=== PATIENT | male | born 1945 | race Caucasian/White ===

== ENCOUNTER 2020-03-21 13:14 | Inpatient (IN) | payer MEDICARE, MEDICAID ==
[~2020-03-21] VITALS: Ht 167.6 cm; Wt 88.6 kg
[2020-03-21] MEDS ORDERED: METHYLPREDNISOLONE SOD SUCC 125 MG/2 ML VIAL IV STA (13:54)
[2020-03-21] MEDS ORDERED: MAGNESIUM 2 G PREMIX 50 ML IV STA (13:54)
[2020-03-21] MEDS ORDERED: ALBUTEROL 6.7GM HFA INHALER ORI ONE (14:00)
[2020-03-21] MEDS ORDERED: SODIUM CHLORIDE 0.9% 500 ML IV ONE (14:00)
[2020-03-21] MEDS ORDERED: LEVOFLOXACIN 750MG PREMIX 150 ML IV ONE (14:00)
[2020-03-21 14:37] LABS: HEMATOCRIT. 41.7 % (42.0-52.0); HEMOGLOBIN. 14.4 g/dL (14.0-18.0); MEAN CORPUSCULAR HEMOGLOBIN 31.4 pg (28.0-32.0); MEAN PLATELET VOLUME 8.2 fl (7.4-10.4); PLATELET 131 x1000/uL (130-400); RED BLOOD CELL COUNT 4.58 mill/uL (4.7-6.1); RED CELL DISTRIBUTION WIDTH 14.3 % (11.6-14.6)
[2020-03-21 14:41] LABS: INR 1.2; PROTHROMBIN TIME 12.4 sec (9.6-11.0)
[2020-03-21 14:46] LABS: CHLORIDE 102 mEq/L (98-107)
[2020-03-21 14:53] LABS: PLATELET ESTIMATE NORMAL
[2020-03-21] MEDS ORDERED: ACETAMINOPHEN 325MG TABLET PO ONE (15:00)
[2020-03-21] MEDS ORDERED: FUROSEMIDE 40MG/4ML VIAL IVP ONE (15:00)
[2020-03-22] MEDS ORDERED: BENZONATATE 100MG CAPSULE PO PRN (08:45)
[2020-03-22] MEDS ORDERED: MAGNESIUM/ALUMINUM HYDROXIDE/SIMETHICONE 30ML UDC PO PRN (08:45)
[2020-03-22] MEDS ORDERED: DIPHENHYDRAMINE 50MG/ML VIAL IV PRN (08:45)
[2020-03-22] MEDS ORDERED: HYDROCODONE/ACETAMINOPHEN 5/325MG TABLET PO PRN (08:45)
[2020-03-22] MEDS ORDERED: DOCUSATE SODIUM 100MG CAPSULE PO PRN (08:45)
[2020-03-22] MEDS ORDERED: ONDANSETRON HCL 4MG/2ML INJ IV PRN (08:45)
[2020-03-22] MEDS ORDERED: CLONIDINE 0.1MG TABLET PO PRN (08:45)
[2020-03-22] MEDS ORDERED: ENOXAPARIN 40MG/0.4ML SYR SUBCUT SCH (09:00)
[2020-03-22] MEDS: FUROSEMIDE 40MG/4ML VIAL IVP SCH (09:41)
[2020-03-22] MEDS: OMEPRAZOLE 20MG CAPSULE EXTENDED RELEASE PO SCH (09:41)
[2020-03-22] MEDS: ASPIRIN 81MG TABLET PO SCH (10:15)
[2020-03-22] MEDS ORDERED: ENOXAPARIN 30MG/0.3ML SYR SUBCUT NR (10:45)
[2020-03-22] MEDS ORDERED: FUROSEMIDE 40MG/4ML VIAL IVP SCH (11:00)
[2020-03-22] MEDS ORDERED: CEFTRIAXONE 1 G PREMIX 50 ML IV SCH (11:15)
[2020-03-22] MEDS: DEXAMETHASONE 4MG/ML 1ML VIAL IV SCH (11:15)
[2020-03-22 12:32] LABS: HEMATOCRIT 42.4 % (42.0-52.0); HEMOGLOBIN 14.5 g/dL (14.0-18.0); MEAN CORPUSCULAR HEMOGLOBIN 31.2 pg (28.0-32.0); MEAN CORPUSCULAR VOLUME 91.2 fL (80.0-94.0); PLATELET 149 x1000/uL (130-400); RED BLOOD CELL COUNT 4.65 mill/uL (4.7-6.1); RED CELL DISTRIBUTION WIDTH 14.3 % (11.6-14.6)
[2020-03-22 12:43] LABS: CHLORIDE 100 mEq/L (98-107)
[2020-03-22] MEDS: CEFTRIAXONE 1,000 MG in DEXTROSE 5% WATER 50 ML IV SCH (13:45)
[2020-03-22] MEDS: DILTIAZEM HCL 120MG CAPSULE CD 24HR PO SCH (13:45)
[2020-03-22] MEDS: AZITHROMYCIN 500 MG in DEXT 5% WATER 250 ML IV SCH (13:45)
[2020-03-22] MEDS ORDERED: DEXTROSE 50% WATER 50ML SYRINGE IV PRN (14:15)
[2020-03-22] MEDS: BLOOD SUGAR DIAGNOSTIC STRIP TEST SCH ×2 (16:30→20:00)
[2020-03-22] MEDS: INSULIN LISPRO 100 UNITS/ML SUBCUT SCH ×2 (17:00→21:00)
[2020-03-22 21:54] LABS: HEMATOCRIT. 42.7 % (42.0-52.0); HEMOGLOBIN. 14.6 g/dL (14.0-18.0); MEAN CORPUSCULAR HEMOGLOBIN 31.4 pg (28.0-32.0); MEAN CORPUSCULAR VOLUME 91.8 fL (80.0-94.0); MEAN PLATELET VOLUME 8.4 fl (7.4-10.4); PLATELET 164 x1000/uL (130-400); RED BLOOD CELL COUNT 4.65 mill/uL (4.7-6.1); RED CELL DISTRIBUTION WIDTH 14.6 % (11.6-14.6)
[2020-03-22 21:57] LABS: INR 1.2; PROTHROMBIN TIME 12.8 sec (9.6-11.0)
[2020-03-22] MEDS ORDERED: IOHEXOL-350 100 ML BOTTLE ONE (21:59)
[2020-03-22 22:06] LABS: CHLORIDE 100 mEq/L (98-107)
[2020-03-22 22:06] LABS: BG BASE EXCESS -1.3 mmol/L (-2.0-2.0); BG CARBOXYHEMOGLOBIN 0.1 % (0.5-1.5); BG DEOXYHEMOGLOBIN 1.9 % (0.0-5.0); BG FRACTION INSPIRED OXYGEN 40; BG HCO3 ACT 27.8 mmol/L (22.0-26.0); BG METHEMOGLOBIN 0.4 % (0.0-1.5); BG OXYGEN SATURATION 98.1 % (92.0-98.5); BG OXYHEMOGLOBIN 97.6 % (94.0-97.0); BG PCO2 65.8 mmHg (35.0-45.0); BG PH 7.243 (7.350-7.450); BG PO2 134.3 mmHg (75.0-100.0); BG SAMPLE SITE RIGHT RADIAL; BG VENT MODE NASAL CANNULA
[2020-03-22 22:26] LABS: PLATELET ESTIMATE NORMAL
[2020-03-22] MEDS ORDERED: HALOPERIDOL LACTATE 5MG/ML VIAL IM NR (22:30)
[2020-03-23] MEDS: ENOXAPARIN 80MG/0.8ML SYR SUBCUT SCH ×3 (00:06→21:21)
[2020-03-23] MEDS: CARVEDILOL 12.5MG TABLET PO SCH ×4 (00:07→22:53)
[2020-03-23] MEDS: ATORVASTATIN CALCIUM 40MG TABLET PO SCH ×2 (00:07→21:20)
[2020-03-23] MEDS ORDERED: ALBUTEROL (0.083%) 2.5MG/3ML NEB HHN ONE (01:30)
[2020-03-23] MEDS ORDERED: SODIUM CHLORIDE 0.9% 500 ML IV ONE (01:30)
[2020-03-23 05:01] LABS: CHLORIDE 102 mEq/L (98-107)
[2020-03-23 05:02] LABS: HEMATOCRIT. 42.8 % (42.0-52.0); HEMOGLOBIN. 14.6 g/dL (14.0-18.0); MEAN CORPUSCULAR HEMOGLOBIN 31.2 pg (28.0-32.0); MEAN CORPUSCULAR VOLUME 91.2 fL (80.0-94.0); MEAN PLATELET VOLUME 8.2 fl (7.4-10.4); PLATELET 171 x1000/uL (130-400); RED BLOOD CELL COUNT 4.69 mill/uL (4.7-6.1); RED CELL DISTRIBUTION WIDTH 14.4 % (11.6-14.6)
[2020-03-23 05:19] LABS: PHOSPHORUS 4.3 mg/dL (2.5-4.9)
[2020-03-23 05:20] LABS: LDL CHOLESTEROL 63 mg/dL (5-100)
[2020-03-23 05:23] LABS: T4 FREE 1.38 ng/dL (0.76-1.46)
[2020-03-23 05:24] LABS: HDL CHOLESTEROL 38 mg/dL (40-59)
[2020-03-23] MEDS ORDERED: GLIM2TAB30 PO (05:58)
[2020-03-23] MEDS ORDERED: POTA20TA82 PO (05:58)
[2020-03-23] MEDS ORDERED: ATOR-2 PO (05:58)
[2020-03-23] MEDS ORDERED: METF-416 PO (05:58)
[2020-03-23] MEDS ORDERED: ASPI-1158 PO (05:58)
[2020-03-23] MEDS ORDERED: CARV12.545 PO (05:58)
[2020-03-23] MEDS ORDERED: LISI-604 PO (05:58)
[2020-03-23] MEDS ORDERED: FURO40TA5 PO (05:58)
[2020-03-23 05:59] VITALS: BP 150/54
[2020-03-23] MEDS: OMEPRAZOLE 20MG CAPSULE EXTENDED RELEASE PO SCH ×2 (06:40→07:06)
[2020-03-23] MEDS: BLOOD SUGAR DIAGNOSTIC STRIP TEST SCH ×4 (06:53→20:54)
[2020-03-23 08:00] VITALS: BP_SYST 132; BP_SYST 90; BP_DIAS 42
[2020-03-23] MEDS: DILTIAZEM HCL 120MG CAPSULE CD 24HR PO SCH (09:00)
[2020-03-23] MEDS: FUROSEMIDE 40MG/4ML VIAL IVP SCH (09:00)
[2020-03-23] MEDS: ASPIRIN 81MG TABLET PO SCH (09:17)
[2020-03-23] MEDS: INSULIN LISPRO 100 UNITS/ML SUBCUT SCH ×4 (09:17→21:22)
[2020-03-23] MEDS: DEXAMETHASONE 4MG/ML 1ML VIAL IV SCH (09:18)
[2020-03-23] MEDS: ACETAMINOPHEN 325MG TABLET PO PRN (10:30)
[2020-03-23 11:10] LABS: BG BASE EXCESS 0.7 mmol/L (-2.0-2.0); BG CARBOXYHEMOGLOBIN 0.3 % (0.5-1.5); BG DEOXYHEMOGLOBIN 5.9 % (0.0-5.0); BG FRACTION INSPIRED OXYGEN 40; BG HCO3 ACT 27.2 mmol/L (22.0-26.0); BG METHEMOGLOBIN 0.3 % (0.0-1.5); BG OXYGEN SATURATION 94.1 % (92.0-98.5); BG OXYHEMOGLOBIN 93.5 % (94.0-97.0); BG PCO2 50.9 mmHg (35.0-45.0); BG PH 7.345 (7.350-7.450); BG PO2 71.1 mmHg (75.0-100.0); BG SAMPLE SITE LEFT RADIAL; BG VENT MODE NASAL CANNULA
[2020-03-23 11:10] LABS: PLATELET ESTIMATE NORMAL
[2020-03-23 12:00] VITALS: BP 114/53
[2020-03-23] MEDS: AZITHROMYCIN 500 MG in DEXT 5% WATER 250 ML IV SCH (12:14)
[2020-03-23] MEDS: CEFTRIAXONE 1,000 MG in DEXTROSE 5% WATER 50 ML IV SCH (13:22)
[2020-03-23] MEDS ORDERED: SODIUM POLYSTYRENE SULFONATE 15 G/60 ML BOT PO NR (15:00)
[2020-03-23] MEDS ORDERED: INSULIN LISPRO 100 UNITS/ML SUBCUT NR (15:15)
[2020-03-23 16:00] VITALS: BP 146/66
[2020-03-23 20:00] VITALS: BP 98/51
[2020-03-23] MEDS: INSULIN GLARGINE UD 100 UNITS/ML SYR SUBCUT SCH (21:58)
[2020-03-23 23:00] VITALS: BP 125/85
[2020-03-24] VITALS: BP 144/68
[2020-03-24 04:00] VITALS: BP 154/76
[2020-03-24 04:38] LABS: CLARITY URINE CLOUDY (CLEAR); COLOR URINE ORANGE (YELLOW); KETONES URINE NEGATIVE (NEGATIVE); LEUKOCYTE ESTERASE URINE TRACE (NEGATIVE); NITRITE URINE NEGATIVE (NEGATIVE); OCCULT BLOOD URINE 3+ (NEGATIVE); PH URINE 5.5 (4.5-8.0); PROTEIN URINE 2+ (NEGATIVE); SPECIFIC GRAVITY URINE 1.032 (1.005-1.030)
[2020-03-24] MEDS: BLOOD SUGAR DIAGNOSTIC STRIP TEST SCH ×4 (05:43→20:55)
[2020-03-24] MEDS: INSULIN LISPRO 100 UNITS/ML SUBCUT SCH ×4 (07:10→22:16)
[2020-03-24 08:00] VITALS: BP 163/89
[2020-03-24 08:21] LABS: HEMATOCRIT. 42.5 % (42.0-52.0); HEMOGLOBIN. 14.2 g/dL (14.0-18.0); MEAN CORPUSCULAR HEMOGLOBIN 30.6 pg (28.0-32.0); MEAN CORPUSCULAR VOLUME 91.2 fL (80.0-94.0); PLATELET 160 x1000/uL (130-400); RED BLOOD CELL COUNT 4.66 mill/uL (4.7-6.1); RED CELL DISTRIBUTION WIDTH 14.6 % (11.6-14.6)
[2020-03-24 08:28] LABS: CHLORIDE 103 mEq/L (98-107)
[2020-03-24] MEDS: FUROSEMIDE 40MG/4ML VIAL IVP SCH (10:48)
[2020-03-24] MEDS: ASPIRIN 81MG TABLET PO SCH (10:53)
[2020-03-24] MEDS: AZITHROMYCIN 500 MG TABLET PO SCH (10:53)
[2020-03-24] MEDS: FAMOTIDINE 20MG TABLET PO SCH ×2 (10:55→22:14)
[2020-03-24] MEDS: CARVEDILOL 12.5MG TABLET PO SCH ×2 (10:55→21:00)
[2020-03-24] MEDS: DILTIAZEM HCL 120MG CAPSULE CD 24HR PO SCH (10:55)
[2020-03-24] MEDS: INSULIN GLARGINE UD 100 UNITS/ML SYR SUBCUT SCH ×2 (10:56→22:17)
[2020-03-24] MEDS: ENOXAPARIN 80MG/0.8ML SYR SUBCUT SCH ×2 (10:56→22:14)
[2020-03-24] MEDS: DEXAMETHASONE 10 MG/ML VIAL IV SCH (10:58)
[2020-03-24 12:00] VITALS: BP 134/77
[2020-03-24 12:35] LABS: PLATELET ESTIMATE NORMAL
[2020-03-24] MEDS: CEFTRIAXONE 1,000 MG in DEXTROSE 5% WATER 50 ML IV SCH (13:05)
[2020-03-24] MEDS: ACETAMINOPHEN 325MG TABLET PO PRN (13:25)
[2020-03-24 16:00] VITALS: BP 114/54
[2020-03-24 20:00] VITALS: BP 103/76
[2020-03-24] MEDS: ATORVASTATIN CALCIUM 40MG TABLET PO SCH (22:14)
[2020-03-24] MEDS: GUAIFENESIN 600MG ER TABLET PO SCH (22:14)
[2020-03-25] VITALS: BP 158/75
[2020-03-25 04:00] VITALS: BP 161/75
[2020-03-25] MEDS: BLOOD SUGAR DIAGNOSTIC STRIP TEST SCH ×4 (07:08→21:41)
[2020-03-25] MEDS: INSULIN LISPRO 100 UNITS/ML SUBCUT SCH ×4 (07:10→23:15)
[2020-03-25 08:00] VITALS: BP 149/91
[2020-03-25 08:20] LABS: HEMOGLOBIN. 13.2 g/dL (14.0-18.0); MEAN CORPUSCULAR HEMOGLOBIN 31.6 pg (28.0-32.0); PLATELET 158 x1000/uL (130-400); RED BLOOD CELL COUNT 4.19 mill/uL (4.7-6.1); RED CELL DISTRIBUTION WIDTH 14.9 % (11.6-14.6)
[2020-03-25 08:27] LABS: CHLORIDE 99 mEq/L (98-107)
[2020-03-25] MEDS: FAMOTIDINE 20MG TABLET PO SCH ×2 (09:00→21:43)
[2020-03-25] MEDS: DILTIAZEM HCL 120MG CAPSULE CD 24HR PO SCH (09:00)
[2020-03-25] MEDS: ENOXAPARIN 80MG/0.8ML SYR SUBCUT SCH ×2 (09:00→21:41)
[2020-03-25] MEDS: GUAIFENESIN 600MG ER TABLET PO SCH ×2 (09:00→21:42)
[2020-03-25 09:17] LABS: VITAMIN B12 SERUM 538 pg/mL (211-911)
[2020-03-25] MEDS: AZITHROMYCIN 500 MG TABLET PO SCH (10:24)
[2020-03-25] MEDS: DEXAMETHASONE 10 MG/ML VIAL IV SCH (10:24)
[2020-03-25] MEDS: FUROSEMIDE 40MG/4ML VIAL IVP SCH (10:24)
[2020-03-25] MEDS: ACETAMINOPHEN 325MG TABLET PO PRN (10:25)
[2020-03-25] MEDS: CARVEDILOL 12.5MG TABLET PO SCH ×2 (10:25→21:43)
[2020-03-25] MEDS: ASPIRIN 81MG TABLET PO SCH (10:25)
[2020-03-25] MEDS: INSULIN GLARGINE UD 100 UNITS/ML SYR SUBCUT SCH ×2 (10:27→23:14)
[2020-03-25 11:46] LABS: PLATELET ESTIMATE NORMAL
[2020-03-25 12:00] VITALS: BP 148/99
[2020-03-25] MEDS ORDERED: DILTIAZEM HCL 5MG/ML 5ML VIAL IV NR (12:00)
[2020-03-25] MEDS: CEFTRIAXONE 1,000 MG in DEXTROSE 5% WATER 50 ML IV SCH (14:08)
[2020-03-25] MEDS: DILTIAZEM HCL 60MG TABLET PO SCH ×2 (14:51→18:12)
[2020-03-25 16:00] VITALS: BP 97/55
[2020-03-25] MEDS: ATORVASTATIN CALCIUM 40MG TABLET PO SCH (21:42)
[2020-03-26] VITALS (143 sets, daily range): BP systolic 41–211; BP diastolic 26–150
[2020-03-26] MEDS: BLOOD SUGAR DIAGNOSTIC STRIP TEST SCH ×4 (06:00→21:14)
[2020-03-26] MEDS: DILTIAZEM HCL 60MG TABLET PO SCH ×5 (06:00→23:30)
[2020-03-26] MEDS: INSULIN LISPRO 100 UNITS/ML SUBCUT SCH ×4 (07:10→21:09)
[2020-03-26] MEDS: FUROSEMIDE 40MG/4ML VIAL IVP SCH (09:00)
[2020-03-26] MEDS: DEXAMETHASONE 10 MG/ML VIAL IV SCH (09:00)
[2020-03-26] MEDS: FAMOTIDINE 20MG TABLET PO SCH ×2 (09:00→21:00)
[2020-03-26] MEDS: CARVEDILOL 12.5MG TABLET PO SCH ×2 (09:00→21:00)
[2020-03-26] MEDS: GUAIFENESIN 600MG ER TABLET PO SCH ×2 (09:00→21:00)
[2020-03-26] MEDS: ASPIRIN 81MG TABLET PO SCH (09:00)
[2020-03-26] MEDS: ENOXAPARIN 80MG/0.8ML SYR SUBCUT SCH (09:00)
[2020-03-26] MEDS ORDERED: EPINEPHRINE 10 MG in SODIUM CHLORIDE 0.9% 240 ML IV PRN (09:15)
[2020-03-26] MEDS ORDERED: AMIODARONE HCL 900 MG in DEXT 5% WATER 482 ML IV PRN (09:30)
[2020-03-26] MEDS ORDERED: AMIODARONE HCL 150 MG in DEXT 5% WATER 100 ML IV SCH (09:30)
[2020-03-26] MEDS: INSULIN GLARGINE UD 100 UNITS/ML SYR SUBCUT SCH ×2 (10:00→21:16)
[2020-03-26 10:25] LABS: BG BASE EXCESS 1.1 mmol/L (-2.0-2.0); BG CARBOXYHEMOGLOBIN 0.5 % (0.5-1.5); BG DEOXYHEMOGLOBIN 12.7 % (0.0-5.0); BG HCO3 ACT 25.3 mmol/L (22.0-26.0); BG METHEMOGLOBIN 0.3 % (0.0-1.5); BG OXYGEN SATURATION 87.2 % (92.0-98.5); BG OXYHEMOGLOBIN 86.5 % (94.0-97.0); BG PCO2 38.8 mmHg (35.0-45.0); BG PH 7.432 (7.350-7.450); BG PO2 52.6 mmHg (75.0-100.0); BG SAMPLE SITE RIGHT RADIAL; BG TOTAL HEMOGLOBIN 14.4 g/dL (12.0-18.0); BG VENT MODE VENT- PRVC
[2020-03-26 10:29] LABS: HEMATOCRIT. 39.2 % (42.0-52.0); HEMOGLOBIN. 12.7 g/dL (14.0-18.0); MEAN CORPUSCULAR HEMOGLOBIN 30.7 pg (28.0-32.0); MEAN CORPUSCULAR VOLUME 94.6 fL (80.0-94.0); MEAN PLATELET VOLUME 8.1 fl (7.4-10.4); PLATELET 132 x1000/uL (130-400); RED BLOOD CELL COUNT 4.14 mill/uL (4.7-6.1); RED CELL DISTRIBUTION WIDTH 14.9 % (11.6-14.6)
[2020-03-26 10:40] LABS: CHLORIDE 105 mEq/L (98-107)
[2020-03-26] MEDS: VASOPRESSIN 20 UNIT in SODIUM CHLORIDE 0.9% 99 ML IV PRN (11:00)
[2020-03-26] MEDS: NOREPINEPHRINE 32 MG in DEXT 5% WATER 218 ML IV PRN ×3 (11:00→23:25)
[2020-03-26] MEDS ORDERED: DIGOXIN 125MCG TABLET PO NR (11:00)
[2020-03-26 11:23] LABS: PHOSPHORUS 8.8 mg/dL (2.5-4.9)
[2020-03-26] MEDS ORDERED: DIGOXIN 500MCG/2ML AMP IV NR (11:45)
[2020-03-26] MEDS ORDERED: SODIUM CHLORIDE 3% FOR INH 4ML UD NEB INH SCH (12:00)
[2020-03-26] MEDS: PHENYLEPHRINE 50 MG in DEXT 5% WATER 245 ML IV PRN (12:56)
[2020-03-26 13:51] LABS: ATYPICAL LYMPHOCYTES 3
[2020-03-26 13:52] LABS: PLATELET ESTIMATE NORMAL
[2020-03-26] MEDS ORDERED: DIGOXIN 125MCG TABLET PO SCH (14:00)
[2020-03-26] MEDS ORDERED: SODIUM POLYSTYRENE SULFONATE 15 G/60 ML BOT NG NR (15:00)
[2020-03-26] MEDS: DIGOXIN 500MCG/2ML AMP IV PRN ×2 (15:05→17:43)
[2020-03-26] MEDS ORDERED: INSULIN REGULAR (HUMULIN R) 300UNITS/3ML VIAL IV NR (17:00)
[2020-03-26] MEDS ORDERED: DEXTROSE 50% WATER 50ML SYRINGE IV NR (17:00)
[2020-03-26] MEDS ORDERED: SODIUM BICARBONATE 8.4% 1 MEQ/ML 50ML SYR IV NR (17:00)
[2020-03-26] MEDS ORDERED: CALCIUM CHLORIDE 1,000 MG in DEXT 5% WATER 90 ML IV NR (17:30)
[2020-03-26] MEDS: ATORVASTATIN CALCIUM 40MG TABLET PO SCH (21:00)
[2020-03-26] MEDS ORDERED: ENOXAPARIN 100MG/ML SYR SUBCUT SCH (21:00)
[2020-03-27] VITALS (218 sets, daily range): BP systolic 51–254; BP diastolic 33–184
[2020-03-27] MEDS: PHENYLEPHRINE 50 MG in DEXT 5% WATER 245 ML IV PRN ×5 (01:53→20:27)
[2020-03-27] MEDS: ACETAMINOPHEN 325MG TABLET PO PRN (04:40)
[2020-03-27 05:56] LABS: CHLORIDE 105 mEq/L (98-107)
[2020-03-27 06:01] LABS: HEMATOCRIT. 40.7 % (42.0-52.0); HEMOGLOBIN. 14.2 g/dL (14.0-18.0); MEAN CORPUSCULAR HEMOGLOBIN 34.9 pg (28.0-32.0); MEAN CORPUSCULAR VOLUME 99.7 fL (80.0-94.0); MEAN PLATELET VOLUME 9.4 fl (7.4-10.4); PLATELET 162 x1000/uL (130-400); RED BLOOD CELL COUNT 4.08 mill/uL (4.7-6.1); RED CELL DISTRIBUTION WIDTH 14.7 % (11.6-14.6)
[2020-03-27 06:04] LABS: PHOSPHORUS 2.4 mg/dL (2.5-4.9)
[2020-03-27] MEDS: INSULIN LISPRO 100 UNITS/ML SUBCUT SCH ×4 (06:29→21:01)
[2020-03-27] MEDS: BLOOD SUGAR DIAGNOSTIC STRIP TEST SCH ×4 (06:32→21:00)
[2020-03-27] MEDS: DILTIAZEM HCL 60MG TABLET PO SCH ×4 (07:01→23:26)
[2020-03-27] MEDS ORDERED: INSULIN REGULAR (HUMULIN R) 300UNITS/3ML VIAL IV NR (08:15)
[2020-03-27] MEDS ORDERED: SODIUM BICARBONATE 8.4% 1 MEQ/ML 50ML SYR IV NR (08:15)
[2020-03-27] MEDS ORDERED: SODIUM POLYSTYRENE SULFONATE 15 G/60 ML BOT PO NR (08:15)
[2020-03-27] MEDS ORDERED: DEXTROSE 50% WATER 50ML SYRINGE IV NR (08:15)
[2020-03-27 08:35] LABS: NUCLEATED RED BLOOD CELLS 1 /100 WBC; PLATELET ESTIMATE NORMAL
[2020-03-27] MEDS: DEXAMETHASONE 10 MG/ML VIAL IV SCH (09:08)
[2020-03-27] MEDS: GUAIFENESIN 600MG ER TABLET PO SCH ×2 (09:08→20:10)
[2020-03-27] MEDS: ACETYLCYSTEINE 100MG/ML 10% VIAL 4ML INH SCH ×2 (09:08→13:24)
[2020-03-27] MEDS: ASPIRIN 81MG TABLET PO SCH (09:08)
[2020-03-27] MEDS: FAMOTIDINE 20MG TABLET PO SCH ×2 (09:08→20:10)
[2020-03-27] MEDS: FUROSEMIDE 40MG/4ML VIAL IVP SCH (09:08)
[2020-03-27] MEDS: CARVEDILOL 12.5MG TABLET PO SCH ×2 (09:10→20:11)
[2020-03-27] MEDS: INSULIN GLARGINE UD 100 UNITS/ML SYR SUBCUT SCH (09:22)
[2020-03-27] MEDS ORDERED: DILTIAZEM HCL 5MG/ML 5ML VIAL IV NR ×2 (09:45→10:45)
[2020-03-27 09:52] LABS: BG BASE EXCESS 1.3 mmol/L (-2.0-2.0); BG CARBOXYHEMOGLOBIN 0.5 % (0.5-1.5); BG DEOXYHEMOGLOBIN 0.4 % (0.0-5.0); BG FRACTION INSPIRED OXYGEN 100; BG HCO3 ACT 27.3 mmol/L (22.0-26.0); BG METHEMOGLOBIN 0.4 % (0.0-1.5); BG OXYGEN SATURATION 99.6 % (92.0-98.5); BG OXYHEMOGLOBIN 98.7 % (94.0-97.0); BG PCO2 48.5 mmHg (35.0-45.0); BG PH 7.369 (7.350-7.450); BG SAMPLE SITE RIGHT RADIAL; BG TOTAL HEMOGLOBIN 14.9 g/dL (12.0-18.0); BG VENT MODE VENT - PRVC
[2020-03-27] MEDS ORDERED: INSULIN GLARGINE UD 100 UNITS/ML SYR SUBCUT ONE (12:30)
[2020-03-27] MEDS ORDERED: CALCIUM CHLORIDE 1,000 MG in DEXT 5% WATER 90 ML IV SCH (13:00)
[2020-03-27] MEDS: VASOPRESSIN 20 UNIT in SODIUM CHLORIDE 0.9% 99 ML IV PRN (13:00)
[2020-03-27] MEDS: IPRATROPIUM BROMIDE (0.02%) 0.5MG/2.5ML NEB HHN SCH ×2 (13:24→20:51)
[2020-03-27] MEDS: NOREPINEPHRINE 32 MG in DEXT 5% WATER 218 ML IV PRN (13:59)
[2020-03-27] MEDS: DILTIAZEM HCL 125 MG in DEXT 5% WATER 100 ML IV SCH (15:38)
[2020-03-27] MEDS ORDERED: SODIUM POLYSTYRENE SULFONATE 15 G/60 ML BOT PO SCH (20:00)
[2020-03-27] MEDS: ENOXAPARIN 100MG/ML SYR SUBCUT SCH (20:11)
[2020-03-27] MEDS: ATORVASTATIN CALCIUM 40MG TABLET PO SCH (20:11)
[2020-03-27] MEDS ORDERED: INSULIN GLARGINE UD 100 UNITS/ML SYR SUBCUT SCH (22:00)
[2020-03-28] VITALS (90 sets, daily range): BP systolic 51–151; BP diastolic 32–101
[2020-03-28] MEDS: PHENYLEPHRINE 50 MG in DEXT 5% WATER 245 ML IV PRN ×5 (00:33→19:14)
[2020-03-28] MEDS: IPRATROPIUM BROMIDE (0.02%) 0.5MG/2.5ML NEB HHN SCH ×4 (01:05→20:39)
[2020-03-28] MEDS: ACETYLCYSTEINE 100MG/ML 10% VIAL 4ML INH SCH ×2 (01:06→08:33)
[2020-03-28] MEDS: DILTIAZEM HCL 125 MG in DEXT 5% WATER 100 ML IV SCH ×3 (02:37→21:48)
[2020-03-28 05:18] LABS: HEMATOCRIT. 43.4 % (42.0-52.0); HEMOGLOBIN. 14.3 g/dL (14.0-18.0); MEAN CORPUSCULAR HEMOGLOBIN 32.9 pg (28.0-32.0); MEAN CORPUSCULAR VOLUME 99.7 fL (80.0-94.0); MEAN PLATELET VOLUME 9.3 fl (7.4-10.4); PLATELET 104 x1000/uL (130-400); RED BLOOD CELL COUNT 4.35 mill/uL (4.7-6.1); RED CELL DISTRIBUTION WIDTH 15.5 % (11.6-14.6)
[2020-03-28] MEDS: DILTIAZEM HCL 60MG TABLET PO SCH ×3 (06:17→18:00)
[2020-03-28] MEDS: BLOOD SUGAR DIAGNOSTIC STRIP TEST SCH ×4 (06:18→21:35)
[2020-03-28] MEDS: INSULIN LISPRO 100 UNITS/ML SUBCUT SCH ×4 (06:18→21:35)
[2020-03-28] MEDS ORDERED: INSULIN LISPRO 100 UNITS/ML SUBCUT SCH (07:00)
[2020-03-28] MEDS ORDERED: SODIUM POLYSTYRENE SULFONATE 15 G/60 ML BOT PO SCH (07:15)
[2020-03-28] MEDS: FUROSEMIDE 40MG/4ML VIAL IVP SCH (08:33)
[2020-03-28] MEDS: GUAIFENESIN 600MG ER TABLET PO SCH ×2 (08:33→21:33)
[2020-03-28] MEDS: DEXAMETHASONE 10 MG/ML VIAL IV SCH (08:33)
[2020-03-28] MEDS: ASPIRIN 81MG TABLET PO SCH (08:33)
[2020-03-28] MEDS: FAMOTIDINE 20MG TABLET PO SCH ×2 (08:33→21:34)
[2020-03-28] MEDS: CARVEDILOL 12.5MG TABLET PO SCH ×2 (08:36→21:36)
[2020-03-28] MEDS ORDERED: INSULIN GLARGINE UD 100 UNITS/ML SYR SUBCUT SCH (10:00)
[2020-03-28 10:13] LABS: BG BASE EXCESS 0.4 mmol/L (-2.0-2.0); BG CARBOXYHEMOGLOBIN 0.5 % (0.5-1.5); BG FRACTION INSPIRED OXYGEN 80; BG HCO3 ACT 28.5 mmol/L (22.0-26.0); BG METHEMOGLOBIN 0.3 % (0.0-1.5); BG OXYHEMOGLOBIN 98.2 % (94.0-97.0); BG PCO2 61.5 mmHg (35.0-45.0); BG PH 7.284 (7.350-7.450); BG PO2 179.3 mmHg (75.0-100.0); BG SAMPLE SITE RIGHT RADIAL; BG TOTAL HEMOGLOBIN 14.2 g/dL (12.0-18.0); BG VENT MODE VENT - PRVC
[2020-03-28] MEDS: VASOPRESSIN 20 UNIT in SODIUM CHLORIDE 0.9% 99 ML IV PRN ×2 (10:18→20:13)
[2020-03-28] MEDS: NOREPINEPHRINE 32 MG in DEXT 5% WATER 218 ML IV PRN (12:07)
[2020-03-28 14:20] LABS: PLATELET ESTIMATE DECREASED
[2020-03-28] MEDS: ATORVASTATIN CALCIUM 40MG TABLET PO SCH (21:33)
[2020-03-28] MEDS: ENOXAPARIN 100MG/ML SYR SUBCUT SCH (21:34)
[2020-03-28] MEDS: INSULIN GLARGINE UD 100 UNITS/ML SYR SUBCUT SCH (21:36)
[2020-03-29] VITALS (56 sets, daily range): BP systolic 71–132; BP diastolic 42–107
[2020-03-29] MEDS: DILTIAZEM HCL 60MG TABLET PO SCH ×3 (00:08→12:00)
[2020-03-29] MEDS: ACETYLCYSTEINE 100MG/ML 10% VIAL 4ML INH SCH ×3 (00:29→15:23)
[2020-03-29] MEDS: IPRATROPIUM BROMIDE (0.02%) 0.5MG/2.5ML NEB HHN SCH ×3 (00:29→15:24)
[2020-03-29] MEDS: PHENYLEPHRINE 50 MG in DEXT 5% WATER 245 ML IV PRN ×2 (03:42→10:34)
[2020-03-29] MEDS: NOREPINEPHRINE 32 MG in DEXT 5% WATER 218 ML IV PRN (03:42)
[2020-03-29 05:30] LABS: HEMATOCRIT. 37.8 % (42.0-52.0); HEMOGLOBIN. 12.4 g/dL (14.0-18.0); MEAN CORPUSCULAR HEMOGLOBIN 31.8 pg (28.0-32.0); MEAN CORPUSCULAR VOLUME 96.9 fL (80.0-94.0); MEAN PLATELET VOLUME 10.3 fl (7.4-10.4); PLATELET 111 x1000/uL (130-400); RED CELL DISTRIBUTION WIDTH 15.4 % (11.6-14.6)
[2020-03-29] MEDS: VASOPRESSIN 20 UNIT in SODIUM CHLORIDE 0.9% 99 ML IV PRN (06:02)
[2020-03-29] MEDS: BLOOD SUGAR DIAGNOSTIC STRIP TEST SCH ×2 (06:28→11:30)
[2020-03-29] MEDS: INSULIN LISPRO 100 UNITS/ML SUBCUT SCH ×2 (06:28→13:06)
[2020-03-29 08:15] LABS: PLATELET ESTIMATE DECREASED
[2020-03-29] MEDS: GUAIFENESIN 600MG ER TABLET PO SCH (09:37)
[2020-03-29] MEDS: FAMOTIDINE 20MG TABLET PO SCH (09:37)
[2020-03-29] MEDS: ASPIRIN 81MG TABLET PO SCH (09:37)
[2020-03-29] MEDS: DEXAMETHASONE 10 MG/ML VIAL IV SCH (09:37)
[2020-03-29] MEDS: CARVEDILOL 12.5MG TABLET PO SCH (09:38)
[2020-03-29] MEDS: INSULIN GLARGINE UD 100 UNITS/ML SYR SUBCUT SCH (09:41)
[2020-03-29] MEDS: FUROSEMIDE 40MG/4ML VIAL IVP SCH (09:43)
[2020-03-29] MEDS ORDERED: SODIUM POLYSTYRENE SULFONATE 15 G/60 ML BOT PO NR (11:00)
[2020-03-29] MEDS ORDERED: INSULIN GLARGINE UD 100 UNITS/ML SYR SUBCUT SCH (22:00)
== END 2020-03-29 16:10 | disposition expired | DRG 871 ==
LOC: ER 14:04 → EDBD 14:04 → MICUSO 18:42 → EDBEDREQTM 18:52 → EDBEDREQ 18:52 → EDBEDREQSVC 18:53 → EDBEDREQTM 03-22 06:52 → EDBEDREQSVC 03-22 06:53 → EDBEDREQTM 03-22 06:53 → 7EST 03-23 03:57 → MICUSO 03-26 09:53
PROVIDERS: ADMIT Internal Medicine; ATTEND Internal Medicine
PROC: 06HY33Z Insertion of Infusion Device into Lower Vein, Percutaneous Approach (ICD-10-PCS; 2020-03-21)
PROC: 0BH18EZ Insertion of Endotracheal Airway into Trachea, Via Natural or Artificial Opening Endoscopic (ICD-10-PCS; 2020-03-21)
PROC: 5A1945Z Respiratory Ventilation, 24-96 Consecutive Hours (ICD-10-PCS; principal; 2020-03-26)
PROC: 5A12012 Performance of Cardiac Output, Single, Manual (ICD-10-PCS; 2020-03-26)
DX: A41.89 Other specified sepsis (principal); U07.1 COVID-19; I50.23 Acute on chronic systolic (congestive) heart failure; J96.01 Acute respiratory failure with hypoxia; J12.89 Other viral pneumonia; K72.00 Acute and subacute hepatic failure without coma; N17.0 Acute kidney failure with tubular necrosis; E43 Unspecified severe protein-calorie malnutrition; N18.6 End stage renal disease; R65.21 Severe sepsis with septic shock; I48.20 Chronic atrial fibrillation, unspecified; I42.9 Cardiomyopathy, unspecified; J44.0 Chronic obstructive pulmonary disease with (acute) lower respiratory infection; G93.1 Anoxic brain damage, not elsewhere classified; E87.2 Acidosis; I13.0 Hypertensive heart and chronic kidney disease with heart failure and stage 1 through stage 4 chronic kidney disease, or unspecified chronic kidney disease; N39.0 Urinary tract infection, site not specified; I46.9 Cardiac arrest, cause unspecified; E11.65 Type 2 diabetes mellitus with hyperglycemia; B97.89 Other viral agents as the cause of diseases classified elsewhere; E78.5 Hyperlipidemia, unspecified; E87.5 Hyperkalemia; I25.10 Atherosclerotic heart disease of native coronary artery without angina pectoris; I49.5 Sick sinus syndrome; E11.22 Type 2 diabetes mellitus with diabetic chronic kidney disease; G51.0 Bell's palsy; Z66 Do not resuscitate; Z79.01 Long term (current) use of anticoagulants; Z87.891 Personal history of nicotine dependence; Z95.0 Presence of cardiac pacemaker; Z79.82 Long term (current) use of aspirin; Z79.899 Other long term (current) drug therapy; Z79.84 Long term (current) use of oral hypoglycemic drugs; Z68.31 Body mass index [BMI] 31.0-31.9, adult
CPT/HCPCS: 36415; 36600; 70496; 71045; 80048; 80053; 80061; 81003; 82140; 82375; 82607; 82728; 82805; 82962; 83036; 83605; 83735; 83880; 84100; 84145; 84439; 84443; 84484; 85025; 85027; 85379; 86140; 86850; 86900; 87635; 93005; 93970; 99291; J0282; J0456; J0696; J1100; J1160; J1200; J1630; J1650; J1815; J1940; J1956; J2370; J2930; J3475; J3490; J7040; J7050; J7060; J7608; Q9967